=== PATIENT | female | born 1985 | race Two or more races ===

== ENCOUNTER 2021-12-05 06:48 | Day surgery (SDC) | payer OTHER ==
[~2021-12-05] VITALS: Ht 165.1 cm; Wt 68.0 kg
[~2021-12-05 06:48] MED LIST: AMBIEN10 MG PO; WELLBUTRIN XL300 MG
[2021-12-05] MEDS ORDERED: IBU800 MG PO (15:22)
[2021-12-05] MEDS ORDERED: HORIZANT300 MG PO (15:23)
== END 2021-12-05 19:25 | disposition home or self-care (01) ==
LOC: CIR.AMB 06:48
PROVIDERS: ATTEND Obstetrics & Gynecology Gynecology
DX: Z30.2 Encounter for sterilization (principal); N84.0 Polyp of corpus uteri; Z20.822 Contact with and (suspected) exposure to COVID-19; Z88.8 Allergy status to other drugs, medicaments and biological substances; Z86.16 Personal history of COVID-19

== ENCOUNTER 2022-06-28 09:30 | Inpatient (IN) | payer OTHER ==
[~2022-06-28] VITALS: Ht 165.1 cm; Wt 66.7 kg
[~2022-06-28 09:30] MED LIST changes: +HORIZANT300 MG PO; +IBU800 MG PO
[2022-06-28] MEDS ORDERED: CLONAZEPAM0.5 MG PO (13:51)
[2022-06-28] MEDS ORDERED: AVAPRO150 MG PO (13:51)
== END 2022-07-04 13:12 | disposition home or self-care (01) | DRG 743 ==
LOC: EDSTATUS 11:30 → ADM 11:30 → O/R 07-03 06:00 → SURH 07-03 07:00 → OB/GYN 07-03 12:28
PROVIDERS: ADMIT Obstetrics & Gynecology Gynecology; ATTEND Obstetrics & Gynecology Gynecology
PROC: 0UT74ZZ Resection of Bilateral Fallopian Tubes, Percutaneous Endoscopic Approach (ICD-10-PCS; 2022-07-03)
PROC: 0UT94ZZ Resection of Uterus, Percutaneous Endoscopic Approach (ICD-10-PCS; principal; 2022-07-03 07:00)
DX: D25.1 Intramural leiomyoma of uterus (principal); D25.2 Subserosal leiomyoma of uterus; Z20.822 Contact with and (suspected) exposure to COVID-19